=== PATIENT | female | born 1970 | race Caucasian/White ===

== ENCOUNTER → 2016-10-06 | Outpatient (CLI) | payer BC ==
[~2016-10-06] MED LIST: CENTRUM SILVER PO; LAMISIL250 MG PO
--- NOTE | ~2016-10-06 | US24 ---
[facility] A Service of [facility] & [facility] RADIOLOGY TEXT RESULTS PATIENT: TAHMINA NGUYEN LOCATION: [facility] : 70 UNIT #: [id number] AGE: [address]: Bradford Rosenthal MD SEX: F ORDER DR: [id number] [facility] [address]. [place], [place] [address] [id number] O MR#: [id number] Acc #: [id number] NAME: TAHMINA NGUYEN : 1970 SEX: F STUDY DATE/TIME: 10/06/2016 16:15 UNIT: [facility] ROOM: STUDY DESCRIPTION: US Breast Unilateral Attending Physician: Bradford Rosenthal M.D. Ordering Physician: Bradford Rosenthal M.D. Primary Care Physician: Bradford Rosenthal M.D. MEDICAL IMAGING REPORT This report is preliminary unless electronic signature is present EXAM Targeted ultrasound, left breast, 10/06/2016. FINDINGS Please see the separately dictated diagnostic mammogram report from the same date for further details. BIRADS: 4 Suspicious abnormality; biopsy should be considered. Dictated by... Koby Barrios M.D. THIS IS AN ELECTRONICALLY VERIFIED REPORT Koby Barrios M.D. at 10/07/2016 7:43 AM Dillon TD: 10/06/2016 16:58 JOB #: [id number] MEDICAL IMAGING REPORT Page 1 of 1 COPY
--- NOTE | ~2016-10-06 | MY6 ---
[facility] A Service of [facility] RADIOLOGY TEXT RESULTS PATIENT: TAHMINA NGUYEN LOCATION: [facility] : 70 UNIT #: [id number] AGE: [address]: Bradford Rosenthal MD SEX: F ORDER DR: [id number] [place] [address] [facility]. [place], [place] [address] [id number] O MR#: [id number] Acc #: [id number] NAME: TAHMINA NGUYEN : 1970 SEX: F STUDY DATE/TIME: 10/06/2016 15:50 UNIT: [facility] ROOM: STUDY DESCRIPTION: MY Mammogram Dx Dig Chadd Attending Physician: Bradford Rosenthal M.D. Ordering Physician: Bradford Rosenthal M.D. Primary Care Physician: Bradford Rosenthal M.D. MEDICAL IMAGING REPORT This report is preliminary unless electronic signature is present REVISED REPORT SEE ADDENDUM EXAM Bilateral digital diagnostic mammogram and targeted left breast ultrasound, 10/06/2016. INDICATIONS 46-year-old female complaining of breast tenderness on the left for a year. The patient denies a palpable abnormality. History of breast reduction procedure more than 30 years ago. No personal history of breast cancer. Family history positive in the patient's mother. TECHNIQUE CC, MLO, true lateral and exaggerated CC lateral views were obtained on the left. Standard diagnostic images were obtained on the right. Images were obtained and reviewed with an FDA approved CAD device. Following the mammographic portion of the study, targeted ultrasound of the left breast was also performed. COMPARISON Comparison mammogram 09/30/2010, [facility]. FINDINGS Mammographic findings: There is architectural distortion in both breasts related to prior breast reduction procedure. Scattered fibroglandular densities are present and unchanged. Mild asymmetric fibroglandular predominance in the posterior nipple line on the right is stable. Benign-appearing intramammary and axillary nodes are present and there are benign calcifications. The area of palpable concern was marked by the technologist in the upper outer hemisphere left breast. Deep to the marker superimposed over [facility] A Service of [facility] & [facility] RADIOLOGY TEXT RESULTS PATIENT: TAHMINA NGUYEN [id number] UNIT #: [id number] AGE: [address]: Bradford Rosenthal MD SEX: F ORDER DR: pectoralis muscle, there is a lobulated mass measuring about 3.6 x 2.5 cm. This is new compared to the prior study. There are no associated microcalcifications and it has macro lobulated margins. Ultrasound was thereafter performed for further assessment. Ultrasound left breast: The patient is initially scanned by the technologist then rescanned in my presence. Limited physical exam (with patient consent) was also performed. The 3.5 x 2.5 cm mass on the left is faintly palpable on exam. Ultrasound demonstrates an indeterminate hypoechoic solid mass at 3 o'clock in the left breast, 12 cm from the nipple, with macro lobulated margins and no internal color-flow. No significant posterior statistical shadowing. Dimensions 3.1 x 2.5 x 1.1 cm. The mass is indeterminate and new on the patient's current mammogram and further evaluation with ultrasound-guided core biopsy is recommended. Findings and recommendation for biopsy have been discussed with the patient here in the department. She is not on any blood thinners that would need to be discontinued prior to the procedure. I have also personally notified the ordering physician, Dr. Bradford Rosenthal, of the recommendation for biopsy and the need for his office to schedule the procedure for the patient. I have also called and left a message for the breast occasional caregiver regarding the recommendation for biopsy as well. The breast occasional caregiver office is closed at this hour of the day, but I left a voice mail and regardless, Dr. Bradford Rosenthal has been personally contacted by me by telephone regarding recommendations for biopsy today as well. IMPRESSION 1. Abnormal examination. There is a 3 cm lobulated mass in the 3 o'clock posterior left breast. This is new compared to prior studies and the source of pain for the patient. Ultrasound-guided core biopsy is recommended for further assessment. The patient and Dr. Rosenthal are both personally aware of the recommendations for biopsy. Breast occasional caregiver has been notified by voice mail as described above. Patients over the age of 40 are entered into a reminder system with target due date for the next mammogram. A result letter will be sent to the patient. BIRADS: 4 Suspicious abnormality. Biopsy should be considered. Dictated by... Koby Barrios M.D. THIS IS AN ELECTRONICALLY VERIFIED REPORT Koby Barrios M.D. at 10/07/2016 7:37 AM Ishan [facility] A Service of [facility] RADIOLOGY TEXT RESULTS PATIENT: TAHMINA NGUYEN LOCATION: [facility] : 70 UNIT #: [id number] AGE: [address]: Bradford Rosenthal MD SEX: F ORDER DR: TD: 10/06/2016 16:51 JOB #: [id number] ADDENDUM The breast occasional caregiver has acknowledged receipt of the recommendations for biopsy of the left breast mass. Initial contact was made with the breast occasional caregiver yesterday by voice mail. I have personally spoken with the breast occasional caregiver office today regarding acknowledgment of the receipt of the recommendation for biopsy for this patient. STAT * RESULT Dictated by... Koby Barrios M.D. THIS IS AN ELECTRONICALLY VERIFIED REPORT Koby Barrios M.D. at 10/11/2016 10:03 PM Josefina TD: 10/07/2016 09:13 JOB #: [id number] CC: Jessica/[email or web address] Please Delete MEDICAL IMAGING REPORT Page 1 of 1 COPY
== END | disposition home or self-care (01) ==
LOC: CMAM 15:21
DX: N64.4 Mastodynia (principal); N63 Unspecified lump in breast; R92.8 Other abnormal and inconclusive findings on diagnostic imaging of breast
CPT/HCPCS: 76641; G0204

== ENCOUNTER → 2016-10-18 | Outpatient (CLI) | payer BC ==
--- NOTE | ~2016-10-18 | US200 ---
[facility] A Service of [facility] & [facility] RADIOLOGY TEXT RESULTS PATIENT: TAHMINA NGUYEN LOCATION: [facility] : 70 UNIT #: [id number] AGE: [address]: Bradford Rosenthal MD SEX: F ORDER DR: [id number] [facility] [address] [place], [place] [address] [id number] O MR#: [id number] Acc #: [id number] NAME: TAHMINA NGUYEN : 1970 SEX: F STUDY DATE/TIME: 10/18/2016 14:30 UNIT: [facility] ROOM: STUDY DESCRIPTION: US Breast Guided Bx 1st Lesion Attending Physician: Bradford Rosenthal M.D. Referring Physician: Bradford Rosenthal M.D. Ordering Physician: Bradford Rosenthal M.D. Primary Care Physician: Bradford Rosenthal M.D. MEDICAL IMAGING REPORT This report is preliminary unless electronic signature is present ADDENDUM Surgical pathology report revealed possible fibroadenoma versus phyloides tumor. Pathology report and imaging findings are concordant. Given the possibility of phyloides tumor, surgical consultation is recommended. JOB #[id number] Dictated by... Bradly Alejandra M.D. THIS IS AN ELECTRONICALLY VERIFIED REPORT Bradly Alejandra M.D. at 10/28/2016 8:09 AM KRT/to TD: 10/27/2016 15:20 JOB #: [id number] MEDICAL IMAGING REPORT Page 1 of 1 COPY
== END | disposition home or self-care (01) ==
LOC: CWCC 14:11
DX: N63 Unspecified lump in breast (principal)
CPT/HCPCS: 88305

== ENCOUNTER → 2016-12-23 | Day surgery (SDC) | payer BC ==
--- NOTE | ~2016-12-23 | MY14 ---
[facility] A Service of [facility] & [facility] RADIOLOGY TEXT RESULTS PATIENT: TAHMINA NGUYEN LOCATION: [facility] : 70 UNIT #: [id number] AGE: [address]: Juan Diego Anand MD SEX: F ORDER DR: [id number] [facility] [address] [facility]. [place], [place] [address] [id number] O MR#: [id number] Acc #: [id number] NAME: TAHMINA NGUYEN : 1970 SEX: F STUDY DATE/TIME: 12/23/2016 8:45 UNIT: [facility] ROOM: STUDY DESCRIPTION: MY Post Bx Film Attending Physician: Juan Diego Anand M.D. Ordering Physician: Juan Diego Anand M.D. Primary Care Physician: Bradford Rosenthal M.D. 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 Needle localization requested for surgical excision. Status post ultrasound-guided needle localization procedure same date. TECHNIQUE CC, true lateral, exaggerated CC lateral views left breast were obtained and reviewed with an FDA-approved CAD device. COMPARISON 10/06/2016. FINDINGS Initially a 5-cm Pine Knot needle and wire system was used to localize the 3 cm mass at the 3 o'clock position left breast. It was seen to be in good position on ultrasound. The first postprocedure mammogram, however, demonstrated that the needle and wire had become dislodged from the mass. The 5-cm needle and wire was subsequently removed and a second new 7-cm Pine Knot needle and wire system was used to localize the mass with ultrasound guidance. The repeat mammogram images demonstrate that the 7-cm Pine Knot needle and wire system are embedded within the mass and in good position. Images were printed for intraoperative use and are also available on the DR PACS system. Findings were also communicated to Dr. Anand prior to this dictation. Please see the final pathology report and separately dictated ultrasound-guided needle localization procedure report for further details. IMPRESSION The 7-cm needle and a wire system is embedded within the 3 cm mass in the 3 o'clock position left breast. See discussion above. [facility] A Service of [facility] & [facility] RADIOLOGY TEXT RESULTS PATIENT: TAHMINA NGUYEN LOCATION: [facility] : 70 UNIT #: [id number] AGE: [address]: Juan Diego Anand MD SEX: F ORDER DR: BIRADS: 4 Suspicious abnormality - Biopsy should be considered Dictated by... Koby Barrios M.D. THIS IS AN ELECTRONICALLY VERIFIED REPORT Koby Barrios M.D. at 12/23/2016 5:33 PM MARYCRUZ/isidra TD: 12/23/2016 12:32 JOB #: [id number] MEDICAL IMAGING REPORT Page 1 of 1 COPY
--- NOTE | ~2016-12-23 | OR ---
Unit #: [id number] #: [id number] Patient: TAHMINA NGUYEN [id number] [address] [place], [place] [address] [id number] O MR#: [id number] NAME: TAHMINA NGUYEN ROOM: Date of Procedure: 12/23/2016 Admission Date: 12/23/2016 Surgeon: Juan Diego Anand M.D. : 1970 Attending Physician: Juan Diego Anand M.D. Primary Care Physician: Bradford Rosenthal M.D. PROCEDURE OPERATIVE NOTE DATE OF DICTATION December 24, 2016. 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 PROCEDURE PERFORMED Needle localization, excisional biopsy of Phyllodes tumor left breast upper outer quadrant. SURGEON Juan Diego Anand M.D. ANESTHESIA General LMA anesthesia with 0.5% Marcaine plain local anesthesia. FINDINGS The area was found within the specimen with specimen radiograph. An additional shell of normal tissue was taken circumferentially around the area where the tumor was excised and this was sent separately to pathology. SPECIMEN Specimen sent to pathology. COMPLICATIONS None apparent. CONDITION Patient tolerated procedure well. INDICATIONS The patient is a 46-year-old white female who had an abnormality on her mammogram in the left breast upper outer quadrant. Ultrasound and diagnostic mammography confirmed this. 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 Breast MRI was performed which revealed no abnormalities in the right breast and no other abnormalities in the left breast other than this solid neoplasm. She presents at this time for needle localization, excisional biopsy. Unit #: [id number] #: [id number] Patient: TAHMINA NGUYEN OPERATION After reviewing informed consent as well as receiving preoperative antibiotics (1) , the patient who had earlier in the day undergone ultrasound-guided needle localization was brought into the operating room, and after adequate general LMA anesthesia was obtained, her left breast prepped and draped in a sterile fashion. A curvilinear incision was made laterally with a knife and taken down through the subdermal tissues and subcutaneous tissues with the electrocautery. The wire was found and was followed down to the area of the neoplasm which was grasped with an Allis clamp and excised circumferentially with electrocautery with good hemostasis. The specimen was sent to mammography where the specimen radiograph confirmed the lesion clip and wire to be all present within the specimen. Because the edge of the lesion was close to the specimen, at this point a shell approximately 1 cm thick was excise circumferentially with the electrocautery all the way around the area where the lesion had been present. This was to ensure negative margins circumferentially. This was sent separately to pathology. Good hemostasis was confirmed at all areas with the electrocautery. The wound was irrigated, hemostasis obtained with the Bovie, infiltrated with 0.5% Marcaine plain local anesthesia. The subcutaneous and subdermal tissues were reapproximated with interrupted 3-0 Vicryl sutures. The skin was closed with a 4-0 Vicryl subcuticular stitch. Benzoin and Steri-Strips were applied over the wound in occlusive manner, followed by a dry dressing and a Tegaderm dressing. Needle count, sponge count, and instrument counts were all correct as reported by the scrub nurse x2. The patient went from the operating room to recovery room in stable condition. Dictated by... Roopa Stringer/brain TD: 12/24/2016 09:12 JOB #: [id number] CC: [facility] Roopa Johnston M.D. PROCEDURE OPERATIVE NOTE Page 1 of 1 X Juan Diego Anand MD X PROCEDURE OPERATIVE NOTE
--- NOTE | ~2016-12-23 | US202 ---
[facility] A Service of [facility] & [facility] RADIOLOGY TEXT RESULTS PATIENT: TAHMINA NGUYEN LOCATION: [facility] : 70 UNIT #: [id number] AGE: [address]: Juan Diego Anand MD SEX: F ORDER DR: [id number] [place] [id number] [facility]. [place], [place] [address] [id number] O MR#: [id number] Acc #: [id number] NAME: TAHMINA NGUYEN : 1970 SEX: F STUDY DATE/TIME: 12/23/2016 8:12 UNIT: [facility] ROOM: STUDY DESCRIPTION: US Breast Guided Ndl Loc 1st Attending Physician: Juan Diego Anand M.D. Ordering Physician: Juan Diego Anand M.D. Primary Care Physician: Bradford Rosenthal M.D. MEDICAL IMAGING REPORT This report is preliminary unless electronic signature is present REVISED REPORT SEE ADDENDUM EXAM Ultrasound guided needle localization procedure of a 3 cm mass in the left breast HISTORY Biopsy-proven fibroadenoma versus phyllodes tumor. Needle localization requested for surgical excision. FINDINGS The patient's prior imaging studies were reviewed. Survey images here in the department confirm the presence of the mass at 3 o'clock in the left breast. It was adequately visualized to proceed. Procedure and risks were explained to the patient. Risks included but were not limited to bleeding, infection and damage to adjacent structures. The patient gave both oral and written consent to proceed and the consent form was signed and on the chart prior to the procedure. Prior to the procedure, a "time-out" protocol was also followed to confirm patient identity and procedure details. The left breast was prepped, draped in the usual sterile fashion. Maximum sterile-barrier technique appropriate for procedure guidelines was utilized. This included the use of sterile gloves, sterile barriers and sterile instruments. Local anesthesia was achieved with about 3 mL of a buffered 1% lidocaine solution. Thereafter, using ultrasound guidance, a 5-cm Hastings needle and wire system was used to access the mass. Appropriate needle location was documented with ultrasound throughout and images demonstrating appropriate needle placement were saved to the PACS system. The needle was seen to be embedded within the mass and the wire deployed and also seen to be in good position on ultrasound. At this point a postprocedure mammogram was performed and demonstrated that the [facility] A Service of [facility] RADIOLOGY TEXT RESULTS PATIENT: TAHMINA NGUYEN [id number] UNIT #: [id number] AGE: [address]: Juan Diego Anand MD SEX: F ORDER DR: needle and wire had become dislodged from the mass during the interval from completion of the ultrasound portion of the procedure to the time of the patient's mammogram. The patient was brought back to the ultrasound procedure room. It was noted that the hub of the needle and wire had become dislodged approximately 3-4 cm from the patient's skin concordant with mammography imaging. At this point, the needle and wire were removed from the left breast. The left breast was reprepped and draped in the usual sterile fashion. Once again maximum sterile-barrier technique appropriate for procedure guidelines was utilized including the use of sterile gloves, sterile instruments and sterile barriers. Reintroduction of local anesthesia with approximately 4 mL of lidocaine was performed. Thereafter, a new 7-cm Hastings needle and wire system was used to access the mass. Appropriate needle location was documented with ultrasound throughout the procedure and images were saved to the PACS system. The needle was seen to be embedded within the mass under ultrasound and the wire was deployed, also embedded within the mass under ultrasound. At this point a second postprocedure mammogram was performed which demonstrated the needle and wire to be embedded within the posterior margin of the mass, concordant with ultrasound images as well. These images were saved to the DR PACS system and printed for intraoperative use. There were no immediate postprocedure complications. The patient tolerated the procedure well. The procedure and results were discussed with Dr. Anand prior to this dictation. An appropriate note was also left in the patient's chart. IMPRESSION Successful ultrasound-guided needle localization procedure involving a 3 cm mass in the 3 o'clock position left breast. No immediate postprocedure complications. Images have been printed for intraoperative use and are also available on the DR PACS system. Appropriate notes have been left in the patient's chart. If a specimen radiograph becomes available, an addendum to this dictation will be generated at that time. BIRADS: 4 Suspicious abnormality - Biopsy should be considered Dictated by... Koby Barrios M.D. THIS IS AN ELECTRONICALLY VERIFIED REPORT Koby Barrios M.D. at 12/23/2016 5:32 PM Kamille TD: 12/23/2016 12:42 JOB #: [id number] [facility] A Service of [facility] RADIOLOGY TEXT RESULTS PATIENT: TAHMINA NGUYEN [id number] [birth year] UNIT #: [id number] AGE: [address]: Juan Diego Anand MD SEX: F ORDER DR: ADDENDUM EXAM Ultrasound-guided needle localization procedure 12/23/2016 ADDENDUM A [facility] was [facility] The specimen radiograph demonstrates the presence of the oval shaped mass and the localization wire contained within the mass and both are included within the specimen. Findings regarding specimen receipt were called to the operating room of Dr. Anand upon imaging of the specimen at about 1221 hours 12/23/2016. BIRADS: 4 - Suspicious abnormality - Biopsy should be considered Dictated by... Koby Barrios M.D. THIS IS AN ELECTRONICALLY VERIFIED REPORT Koby Barrios M.D. at 12/28/2016 2:35 PM Jayy TD: 12/23/2016 15:26 JOB #: [id number] CC: Sovera/invision Please Delete MEDICAL IMAGING REPORT Page 1 of 1 COPY
--- NOTE | ~2016-12-23 | MY13 ---
[facility] A Service of [facility] RADIOLOGY TEXT RESULTS PATIENT: TAHMINA NGUYEN LOCATION: [facility] : 70 UNIT #: [id number] AGE: [address]: Juan Diego Anand MD SEX: F ORDER DR: [id number] [place] [address] [facility]. [place], [place] [address] [id number] O MR#: [id number] Acc #: [id number] NAME: TAHMINA NGUYEN : 1970 SEX: F STUDY DATE/TIME: 12/23/2016 11:23 UNIT: [facility] ROOM: STUDY DESCRIPTION: MY Surgical Specimen Attending Physician: Juan Diego Anand M.D. Ordering Physician: Juan Diego Anand M.D. Primary Care Physician: Bradford Rosenthal M.D. MEDICAL IMAGING REPORT This report is preliminary unless electronic signature is present EXAM Specimen radiograph 12/23/2016 INDICATION Status post ultrasound-guided needle localization procedure and excisional biopsy same date. TECHNIQUE Single specimen radiograph was performed and compared with the prior needle localization mammogram earlier the same date. FINDINGS The specimen radiograph demonstrates the presence of the oval-shaped mass and the localization wire embedded within the mass, both contained within the specimen. Findings were called to the operating room of Dr. Juan Diego Anand at approximately 1221 hours immediately upon specimen receipt. Please see the final pathology report for further details. IMPRESSION The specimen radiograph demonstrates the presence of the mass and localization wire, both contained within the specimen. Findings were called to Dr. Anand as described. BIRADS: 4 Suspicious abnormality; biopsy should be considered. Dictated by... Koby Barrios M.D. THIS IS AN ELECTRONICALLY VERIFIED REPORT Koby Barrios M.D. at 12/23/2016 5:34 PM MARYCRUZ/zainab [facility] A Service of [facility] RADIOLOGY TEXT RESULTS PATIENT: TAHMINA NGUYEN LOCATION: [facility] : 70 UNIT #: [id number] AGE: [address]: Juan Diego Anand MD SEX: F ORDER DR: TD: 12/23/2016 15:39 JOB #: [id number] MEDICAL IMAGING REPORT Page 1 of 1 COPY
== END | disposition home or self-care (01) ==
LOC: CSUR 07:35 → CWCC 08:00 → CSUR 10:30
DX: D24.2 Benign neoplasm of left breast (principal); N60.32 Fibrosclerosis of left breast; N60.82 Other benign mammary dysplasias of left breast; M19.90 Unspecified osteoarthritis, unspecified site; I10 Essential (primary) hypertension; Z87.891 Personal history of nicotine dependence; Z80.3 Family history of malignant neoplasm of breast; Z79.899 Other long term (current) drug therapy; Z98.51 Tubal ligation status; Z98.890 Other specified postprocedural states
CPT/HCPCS: 76098; 84703; 88305; 88307; G0204; J0690; J2250; J2370; J3010; Q9968